=== PATIENT | male | born 1995 | race African-American/Black ===

== ENCOUNTER 2023-08-30 16:34 | Emergency (ER) | payer MEDICAID ==
[~2023-08-30] VITALS: Ht 190.5 cm; Wt 109.0 kg
[~2023-08-30 16:34] MED LIST: ZIPR40CA2
[2023-08-30 16:36] VITALS: BP 101/71; PULSE 92; RESP 16; TEMP 99; O2SAT 97
[2023-08-30] MEDS ORDERED: MAGNESIUM/ALUMINUM HYDROXIDE/SIMETHICONE 30ML UDC PO ONE (16:45)
[2023-08-30] MEDS ORDERED: FAMOTIDINE 20MG TABLET PO ONE (16:45)
[2023-08-30] MEDS ORDERED: ONDANSETRON 4MG ODT PO ONE (17:00)
[2023-08-30 18:06] LABS: BASOPHILS % 0.6 % (0.0-2.0); EOSINOPHILS % 1.2 % (0.0-5.0); HEMATOCRIT. 53.2 % (42.0-52.0); HEMOGLOBIN. 17.6 g/dL (14.0-18.0); LYMPHOCYTES % 32.8 % (20.0-50.0); MEAN CORPUSCULAR HGB CONC 33.2 g/dL (31.0-37.0); MEAN CORPUSCULAR VOLUME 93.4 fL (80.0-94.0); MEAN PLATELET VOLUME 7.3 fl (7.4-10.4); MONOCYTES % 5.9 % (2.0-8.0); NEUTROPHILS % 59.5 % (40.0-76.0); PLATELET 332 x1000/uL (130-400); RED BLOOD CELL COUNT 5.69 mill/uL (4.7-6.1); RED CELL DISTRIBUTION WIDTH 13.8 % (11.6-14.6); WHITE BLOOD COUNT 10.4 x1000/uL (4.5-11.0)
[2023-08-30 18:33] LABS: ALANINE AMINOTRANSFERASE 9 IU/L (10-49); ALBUMIN 4.2 g/dL (3.2-4.8); ASPARTATE AMINOTRANSFERASE 8 IU/L (<34); BILIRUBIN TOTAL 1.2 mg/dL (0.1-1.0); CALCIUM 9.9 mg/dL (8.7-10.4); CARBON DIOXIDE 26 mEq/L (21-32); CHLORIDE 98 mEq/L (98-107); CREATININE 1.1 mg/dL (0.6-1.3); GLUCOSE 87 mg/dL (70-105); POTASSIUM 3.7 mEq/L (3.5-5.1); PROTEIN TOTAL 7.1 g/dL (6.0-8.3); SODIUM 133 mEq/L (136-145); UREA NITROGEN BLOOD 14 mg/dL (9-23)
[2023-08-30 18:38] LABS: ETHANOL BLOOD < 10 mg/dL (<10)
[2023-08-30] MEDS ORDERED: MAGNESIUM/ALUMINUM HYDROXIDE/SIMETHICONE 30ML UDC PO NR (22:15)
[2023-08-30] MEDS ORDERED: ONDANSETRON 4MG ODT PO NR (22:15)
[2023-08-30] MEDS ORDERED: FAMOTIDINE 20MG TABLET PO NR (22:15)
[2023-08-30] MEDS ORDERED: ACET-2708 MT (23:47)
[2023-08-30] MEDS ORDERED: OMEP20TA23 MT (23:47)
== END 2023-08-31 00:11 | disposition home or self-care (01) ==
LOC: ER 16:34
DX: K27.9 Peptic ulcer, site unspecified, unspecified as acute or chronic, without hemorrhage or perforation (principal); F12.90 Cannabis use, unspecified, uncomplicated
CPT/HCPCS: 80053; 80320; 83690; 85025; 36415; 76705; 99284; Q0162; G0480